=== PATIENT | male | born 1995 | race Caucasian/White ===

== ENCOUNTER 2025-02-22 08:35 | Emergency (ER) | payer OTHER ==
[~2025-02-22] VITALS: Ht 175.3 cm; Wt 78.2 kg
[2025-02-22] MEDS ORDERED: KETOROLAC TROMETHAMINE 15 MG/ML VIAL IV ONE (09:00)
[2025-02-22] MEDS ORDERED: HYDROmorphone HCL 1 MG/ML SYR IV PRN (09:00)
[2025-02-22] MEDS ORDERED: AMP/SULBACTAM SOD 3 GM in SODIUM CHLORIDE 0.9% 100 ML IV ONE (09:00)
[2025-02-22] MEDS ORDERED: SODIUM CHLORIDE 0.9% 1,000 ML IV ONE (09:15)
[2025-02-22] MEDS ORDERED: AMOX TR-K CLV1 EAC1 PO (10:06)
[2025-02-22] MEDS ORDERED: HYDROCODON-ACE1 EA11 PO (10:06)
[2025-02-22 10:34] LABS: BASOPHILS 0.3 % (0.2-1.2); EOSINOPHILS 0.1 % (0.8-7.0); LYMPHOCYTES 5.7 % (21.8-53.1); MCH 28.2 PG (25.7-32.2); MCHC 33.8 g/dL (32.3-36.5); MCV 83.5 fL (79.0-92.2); MONOCYTES 7.8 % (5.3-12.2); NEUTROPHILS 85.4 % (34.0-67.9); RBC 5.39 M/uL (4.63-6.08)
[2025-02-22 11:33] VITALS: BP 128/80
== END 2025-02-22 11:33 | disposition home or self-care (01) ==
LOC: ED 08:35
PROVIDERS: Emergency Medicine
DX: J02.9 Acute pharyngitis, unspecified (principal)
CPT/HCPCS: 36415; 85025; 85060; 96365; 96375; 99283-25; J0295; J1171; J1885; J2919; J7030